=== PATIENT | female | born 1990 | race Caucasian/White ===

== ENCOUNTER 2018-02-13 18:50 | Emergency (ER) | payer OTHER ==
[2018-02-13] MEDS: LORazepam 2 MG TAB PO (19:58)
== END 2018-02-13 20:11 | disposition home or self-care (01) ==
LOC: M ED 18:50
DX: F34.0 Cyclothymic disorder (principal)
CPT/HCPCS: 99284

== ENCOUNTER 2018-02-14 16:11 | Inpatient (IN) | payer OTHER ==
[2018-02-14 16:57] LABS: HEMATOCRIT 36.4 % (36.0-47.0); HEMOGLOBIN 11.7 g/dl (12.0-15.5); MEAN CORPUSCULAR HEMOGLOBIN 26.2 pg (27.0-33.0); MEAN CORPUSCULAR HGB CONC 32.1 g/dl (32.0-36.5); MEAN CORPUSCULAR VOLUME 81.6 fl (80.0-96.0); PLATELET COUNT, AUTOMATED 272 10^3/uL (150-450); RED BLOOD COUNT 4.46 10^6/uL (4.00-5.40); RED CELL DISTRIBUTION WIDTH 14.7 % (11.5-14.5); WHITE BLOOD COUNT 6.3 10^3/uL (4.0-10.0)
[2018-02-14 17:23] LABS: AMPHETAMINES LEVEL URINE NEGATIVE (NEGATIVE); BARBITURATES URINE NEGATIVE (NEGATIVE); BENZODIAZEPINES URINE NEGATIVE (NEGATIVE); CANNABINOIDS URINE NEGATIVE (NEGATIVE); COCAINE METABOLITE URINE NEGATIVE (NEGATIVE); METHADONE URINE NEGATIVE (NEGATIVE); OPIATES URINE NEGATIVE (NEGATIVE); PHENCYCLIDINE URINE NEGATIVE (NEGATIVE)
[2018-02-14 17:41] LABS: ACETAMINOPHEN LEVEL < 2.0 UG/ML (10.0-30.0); ALBUMIN/GLOBULIN RATIO 1.08 (1.00-1.93); ALKALINE PHOSPHATASE 56 U/L (45-117); ALT/SGPT 15 U/L (12-78); ANION GAP 10 MEQ/L (8-16); AST/SGOT 16 U/L (7-37); BILIRUBIN,DIRECT < 0.1 MG/DL (0.0-0.2); BILIRUBIN,TOTAL 0.3 MG/DL (0.2-1.0); BLOOD UREA NITROGEN 8 MG/DL (7-18); CALCIUM LEVEL 8.3 MG/DL (8.5-10.1); CARBON DIOXIDE LEVEL 23 MEQ/L (21-32); CHLORIDE LEVEL 108 MEQ/L (98-107); CREATININE FOR GFR 0.71 MG/DL (0.55-1.30); ETHYL ALCOHOL (ETHANOL) 0.006 % (0.000-0.010); GLOMERULAR FILTRATION RATE > 60.0 (>60); GLUCOSE, FASTING 89 MG/DL (70-100); POTASSIUM SERUM 4.1 MEQ/L (3.5-5.1); SALICYLATE LEVEL < 1.7 MG/DL (5.0-30.0); SODIUM LEVEL 141 MEQ/L (136-145); TOTAL PROTEIN 7.7 GM/DL (6.4-8.2)
[2018-02-14] MEDS ORDERED: MOM 30ML SUSPENSION UDC PO (18:45)
[2018-02-15 11:09] LABS: CONTROL LINE HCG INT CTR LINE PRESENT; HCG, SERUM QUALITATIVE NEGATIVE (NEGATIVE)
[2018-02-15] MEDS: SERTRALINE HCL 50 MG TAB PO (13:25)
[2018-02-15] MEDS: MAALOX 30 ML SUSP *UDC PO (17:22)
[2018-02-15] MEDS: ACETAMINOPHEN TAB 650MG DOSE (2X325MG) PO (21:25)
[2018-02-16] MEDS: MAALOX 30 ML SUSP *UDC PO (00:55)
[2018-02-16 07:26] LABS: FREE T4 0.83 NG/DL (0.76-1.46)
[2018-02-16] MEDS: SERTRALINE HCL 50 MG TAB PO (08:45)
[2018-02-16] MEDS: traZODone 50 MG TAB PO (23:37)
[2018-02-17] MEDS: SERTRALINE HCL 50 MG TAB PO (08:10)
[2018-02-18] MEDS: SERTRALINE HCL 50 MG TAB PO (08:00)
== END 2018-02-18 13:20 | disposition home or self-care (01) | DRG 885 ==
LOC: M ED 16:11 → M ED INP 18:39 → M PSY 20:34
DX: F33.9 Major depressive disorder, recurrent, unspecified (principal); F41.1 Generalized anxiety disorder; E03.9 Hypothyroidism, unspecified; Z79.899 Other long term (current) drug therapy

== ENCOUNTER → 2018-05-08 | Outpatient (REF) | payer OTHER ==
[~2018-05-08] MED LIST: SERT50TA PO; TRAZO50TA PO
[2018-05-08 11:45] LABS: BASO % 0.6 % (0.0-1.0); EOS # 0.1 10^3/uL (0.0-0.50); EOS % 2.5 % (0.0-3.0); HEMATOCRIT 36.5 % (36.0-47.0); HEMOGLOBIN 11.6 g/dl (12.0-15.5); LYMPH # 1.2 10^3/uL (1.5-6.5); LYMPH % 23.4 % (24.0-44.0); MEAN CORPUSCULAR HEMOGLOBIN 25.4 pg (27.0-33.0); MEAN CORPUSCULAR HGB CONC 31.8 g/dl (32.0-36.5); MONO # 0.4 10^3/uL (0.0-0.8); NEUTROPHILS # 3.4 10^3/uL (1.8-7.7); NEUTROPHILS % 65.1 % (36.0-66.0); PLATELET COUNT, AUTOMATED 312 10^3/uL (150-450); RED BLOOD COUNT 4.56 10^6/uL (4.00-5.40); WHITE BLOOD COUNT 5.3 10^3/uL (4.0-10.0)
[2018-05-08 12:20] LABS: BLOOD UREA NITROGEN 8 MG/DL (7-18); CARBON DIOXIDE LEVEL 27 MEQ/L (21-32); CHLORIDE LEVEL 105 MEQ/L (98-107); CREATININE FOR GFR 0.65 MG/DL (0.55-1.30); FREE T4 0.98 NG/DL (0.76-1.46); GLOMERULAR FILTRATION RATE > 60.0 (>60); GLUCOSE, FASTING 75 MG/DL (70-100); POTASSIUM SERUM 4.6 MEQ/L (3.5-5.1); SODIUM LEVEL 137 MEQ/L (136-145)
[2018-05-08 12:32] LABS: PERCENT SATURATION 6.7 % (13.2-45.0)
== END ==
LOC: M SFHCLERA 09:54
PROVIDERS: ATTEND Family Medicine
DX: N92.0 Excessive and frequent menstruation with regular cycle (principal); E03.9 Hypothyroidism, unspecified
CPT/HCPCS: 80048; 82728; 83550; 84439; 84443; 85025; 90471; 90686; G0463

== ENCOUNTER 2018-06-07 17:31 | Emergency (ER) | payer OTHER ==
[~2018-06-07] VITALS: Ht 160 cm; Wt 52.3 kg
[2018-06-07] MEDS ORDERED: SERT25TA88 PO (17:38)
[2018-06-07] MEDS ORDERED: NS 1,000 ML IV ONE (18:15)
[2018-06-07 18:37] LABS: BASO % 0.7 % (0.0-1.0); EOS # 0.1 10^3/uL (0.0-0.50); EOS % 2.6 % (0.0-3.0); HEMATOCRIT 34.5 % (36.0-47.0); HEMOGLOBIN 10.8 g/dl (12.0-15.5); LYMPH # 1.4 10^3/uL (1.5-6.5); LYMPH % 25.2 % (24.0-44.0); MEAN CORPUSCULAR HEMOGLOBIN 25.1 pg (27.0-33.0); MEAN CORPUSCULAR HGB CONC 31.3 g/dl (32.0-36.5); MEAN CORPUSCULAR VOLUME 80.2 fl (80.0-96.0); MONO # 0.4 10^3/uL (0.0-0.8); MONO % 7.1 % (0.0-5.0); NEUTROPHILS # 3.4 10^3/uL (1.8-7.7); PLATELET COUNT, AUTOMATED 264 10^3/uL (150-450); WHITE BLOOD COUNT 5.4 10^3/uL (4.0-10.0)
[2018-06-07 18:48] LABS: INR 1.01; PROTHROMBIN TIME 13.4 SECONDS (12.1-14.4)
[2018-06-07 18:49] LABS: PARTIAL THROMBOPLASTIN TIME 26.4 SECONDS (25.4-37.6)
[2018-06-07 19:03] LABS: ERYTHROCYTE SEDIMENTATION RATE 17 mm/hr (0-20)
[2018-06-07 19:08] LABS: HCG, SERUM QUALITATIVE NEGATIVE (NEGATIVE)
[2018-06-07 19:11] LABS: ALBUMIN 3.5 GM/DL (3.2-5.2); ALT/SGPT 15 U/L (12-78); BILIRUBIN,DIRECT < 0.1 MG/DL (0.0-0.2); BILIRUBIN,TOTAL 0.2 MG/DL (0.2-1.0); BLOOD UREA NITROGEN 7 MG/DL (7-18); C REACTIVE PROTEIN QUANTITATIV < 0.30 MG/DL (0.00-0.30); CALCIUM LEVEL 7.9 MG/DL (8.5-10.1); CARBON DIOXIDE LEVEL 27 MEQ/L (21-32); CHLORIDE LEVEL 109 MEQ/L (98-107); CK-MB VALUE MASS < 1.0 NG/ML (<3.6); CPK CREATINE PHOSPHOKINASE 63 U/L (26-192); CREATININE FOR GFR 0.56 MG/DL (0.55-1.30); GLOMERULAR FILTRATION RATE > 60.0 (>60); GLUCOSE, FASTING 80 MG/DL (70-100); MB/CK RELATIVE INDEX 1.59 (< OR =4); POTASSIUM SERUM 4.3 MEQ/L (3.5-5.1); SODIUM LEVEL 139 MEQ/L (136-145); TOTAL PROTEIN 6.7 GM/DL (6.4-8.2); TROPONIN I < 0.02 NG/ML (< 0.10)
[2018-06-07] MEDS ORDERED: ISOVUE-370 76% 100ML VIAL (Q9967) As Ordered ONE (19:38)
--- NOTE | 2018-06-07 19:48 | REP ---
CHEST, PORTABLE: SINGLE VIEW: There is no evidence of acute infiltrate. No pleural effusion is seen. The heart is normal in size. The mediastinal silhouette is unremarkable. The visualized osseous structures are intact. IMPRESSION: No acute pulmonary disease. Electronically Signed by Ted Mendiola MD 06/07/2018 07:50 P
[2018-06-07] MEDS ORDERED: KETOROLAC 30 MG/ML VIAL (J1885) IV ONE (20:15)
--- NOTE | 2018-06-07 20:37 | REPVR ---
EXAM: CT Angiography Chest With Contrast EXAM DATE/TIME: 06/07/2018 7:44 PM CLINICAL HISTORY: 27 years old, female; Pain; Chest pain; Type not specified TECHNIQUE: Axial computed tomographic angiography images of the chest with intravenous contrast using CT angiography protocol. All CT scans at this facility use at least one of these dose optimization techniques: automated exposure control; mA and/or kV adjustment per patient size (includes targeted exams where dose is matched to clinical indication); or iterative reconstruction. Coronal and sagittal reformatted images were created and reviewed. MIP reconstructed images were created and reviewed. COMPARISON: CR PORTABLE CHEST X-RAY 06/07/2018 7:20 PM FINDINGS: No focal pulmonary artery filling defect to suggest acute pulmonary embolus. No thoracic aortic aneurysm or dissection. Residual thymic tissue is present in the anterior mediastinum. Small, nonspecific mediastinal nodes are present. No pleural effusion or pneumothorax. Pulmonary vascular/interstitial pattern does not suggest active pulmonary edema. Left upper lobe demonstrates reticulonodular subtle infiltrate and possible peripheral endobronchial focal filling, axial image [id number]. No other concerning abnormality. IMPRESSION: No evidence of acute pulmonary embolus. Subtle focal peripheral left upper lobe parenchymal process which likely represents an area of focal infection or inflammation. No discrete mass. Followup CT after treatment is recommended to document resolution. This could be done in 3 months time Electronically signed by: Colten Pitts On 06/07/2018 20:36:47 PM
[2018-06-07] MEDS ORDERED: PERCOCET 5MG/325MG TAB PO ONE (21:00)
[2018-06-07 21:15] VITALS: BP 107/63
[2018-06-07] MEDS ORDERED: KETO10TAB PO (21:21)
[2018-06-07] MEDS ORDERED: OXYCODONE/APAP 5MG/325MG(BULK FOR ED) 1 TABLET PO ONE (21:30)
--- NOTE | 2018-06-08 06:40 | ECGEPIP ---
Stationary ECG Study [facility] - ED Test Date: 2018-06-07 Pat Name: NARAYAN MART Department: Room: - Gender: F Housekeeping Cleaner: JUSTYN : 1990 Requested By: MAGDA Juarez Order Number: [id number] Reading MD: Deepak Aguilar Measurements Intervals [place] Rate: 63 P: 57 NC: 166 QRS: 14 QRSD: 84 T: 32 QT: 390 QTc: 400 Interpretive Statements SINUS RHYTHM EARLY R WAVE PROGRESSION CW 02/[address] T WAVE CHANGES Electronically Signed On 06-08-2018 6:40:21 EST by Deepak Aguilar
--- NOTE | 2018-06-08 20:00 | ED PDOC ---
Post-Departure Follow-Up dr marin faxed formal report of cta for fu Deepak Rondon MD Jun 08, 2018 20:00
== END 2018-06-07 21:43 | disposition home or self-care (01) ==
LOC: M ED 17:31 → EDBD 17:31 → M ED 21:43
DX: R91.8 Other nonspecific abnormal finding of lung field (principal); R07.89 Other chest pain; E03.9 Hypothyroidism, unspecified; F32.9 Major depressive disorder, single episode, unspecified; D50.9 Iron deficiency anemia, unspecified; Z79.899 Other long term (current) drug therapy
CPT/HCPCS: 71045; 71275; 80048; 80076; 82550; 82553; 84443; 84484; 84703; 85025; 85610; 85652; 85730; 86140; 93005; 93041; 94760; 99285; J1885; Q9967